=== PATIENT | female | born 1955 | race African-American/Black ===

== ENCOUNTER 2018-03-11 12:37 | Inpatient (IN) | payer OTHER ==
[~2018-03-11] VITALS: Ht 167.6 cm; Wt 88.6 kg
--- NOTE | ~2018-03-11 | CATHLAB ---
[facility] [address] [place] [address] INVASIVE PROCEDURE REPORT Name: KIRSTIN OBRIEN Room #: 206-P ADM IN M.R.#: [id number] Admission: 03/11/18 Attend Phys: Stephanie Echeverria Discharge: Date of : 55 Date of Service: 03/13/18 0837 Report #: [id number] THIS REPORT FOR: //name// APPROVED REPORT Study performed: 03/13/2018 07:39:41 Patient Details Patient Status: In-Patient Room #: The patient is a 62 year-old female Event Personnel Bebeto Flores Coke Oven Patcher, Funmilayo Orosco RTR, Deanna Guerrero Amber Monitor, Sandra, Bertha RN professor of social work Performed Art Access - R femoral artery* Left Heart Cath w/or w/o Coronaries [id number] [facility] [id number] Initial Mod Sed Same Phys/QHP Gr5y [id number] Hemostasis w/ Mynx Indication Chest pain Procedure Narrative The patient was brought urgently to the Cardiac Catheterization Laboratory and was prepped and draped in a sterile manner. The Right Groin^ was infiltrated with 1% Lidocaine subcutaneous anesthesia. A PINNACLE 6FR Sheath #[id number] sheath was inserted into the RFA^. Coronary angiography was performed using coronary diagnostic catheters. The right coronary system was accessed and visualized with a JR 4 catheter. The left coronary system was accessed and visualized with a JL 4 catheter. The left ventricle was accessed and visualized with a Pigtail catheter. Left ventricular/Aortic Valve gradient assessed via catheter pullback. Left ventriculogram was performed in DELGADO projection. Closure device was deployed with a 6 Fr Mynx. The patient tolerated the procedure well and there were no complications associated with the procedure. There was no hematoma. Intraoperative Conscious Sedation Sedation start time: 08:02 Case end Time: 08:20 Fentanyl 100 mcg Versed 2 mg Fluoro Time: 1.10 minutes Dose: DAP 2864.00 cGycm2 326 mGy [facility] [address] [address] INVASIVE PROCEDURE REPORT Name: KIRSTIN OBRIEN Room #: 206-P ADM IN M.R.#: [id number] Admission: 03/11/18 Attend Phys: Stephanie Echeverria Discharge: Date of : 55 Date of Service: 03/13/18 0837 Report #: [id number] Contrast Type and Amount: Omnipaque 115 ml Coronary Angiography The patient's coronary anatomy is co- dominant. Diagnostic Cath Left Main Normal LAD Normal LAD which extends to the inferoapex Diagonal 1 Single large and angiographically normal diagonal branch Circumflex Large, co-dominant circumflex L PDA Normal posterior descending off of the distal circumflex Right Coronary Normal right coronary R PDA Normal, small posterior descending Left Ventriculography The left ventricle is normal in size with normal contractility. The left ventricular ejection fraction is estimated to be 60-65%. Left ventricular wall motion abnormalities are not present. There is no mitral insufficiency. Hemodynamics The aortic pressure is 160/71 mmHg with a mean of 112 mmHg. The left ventricular pressure is 168/1 mmHg with a mean of mmHg. The left ventricular end diastolic pressure is 45 mmHg. Conclusion 1. Normal global and regional left ventricular systolic function. Ejection fraction 65% 2. Normal coronary vasculature. Codominant circulation <ELECTRONICALLY SIGNED> By: Bebeto Flores MD, FACC 03/13/1837 6 6 Bebeto Flores MD, FACC /INF
--- NOTE | ~2018-03-11 | EKG ---
[address] [address] ELECTROCARDIOGRAM REPORT Name: KIRSTIN ORBIEN Room #: 206-P ADM IN M.R.#: [id number] Admission: 03/11/18 Attend Phys: Stephanie Camacho Discharge: Date of : 55 Report #: [id number] THIS REPORT FOR: //name// [facility] ED Test Date: 2018-03-11 Test Time: 13:31:41 Pat Name: KIRSTIN OBRIEN Department: Room: 206 Gender: F Chain Carrier: JACOB : 1955 Requested By: Faustino Kincaid Order Number: [id number] MD: Regan Lacey Measurements Intervals [place] Rate: 100 P: 38 MD: 157 QRS: 22 QRSD: 77 T: 39 QT: 355 QTc: 458 Interpretive Statements Sinus tachycardia Abnormal R-wave progression, early transition No previous ECG available for comparison Electronically Signed On 03-11-2018 17:42:55 CDT by Regan Lacey [email or web address] <ELECTRONICALLY SIGNED> By: Regan Lacey MD 03/11/18 1742 1331 30 Regan Lacey MD /GERTRUDIS
--- NOTE | ~2018-03-11 | HC ---
[facility] [place] [address] CONSULTATION Name: KIRSTIN OBRIEN Room #: 206-P [facility] IN M.R.#: [id number] Admission: 03/11/18 Attend Phys: Stephanie Camacho Discharge: 03/14/18 Date of : 55 Report #: [id number] THIS REPORT FOR: //name// CC: MARY physician/PCP Stephanie Camacho DATE OF SERVICE: 03/12/2018 HISTORY OF PRESENT ILLNESS: This 62-year-old female is admitted with shortness of breath, chest pain and some left thigh pain. This extends from the hip down toward the knee. She denies any accidents or injuries. At the time of my discussion, she notes she has had chronic progressive hip and knee pain bilaterally for quite some time. She states she has been evaluated in the past, but does not recall whether she has had x-rays or any specific treatment. She feels she does have chronic degenerative arthritis, but is uncertain with regard to anything beyond this. Objectively, she is heavy and deconditioned. She notes she came in with chest pain and shortness of breath, which have improved somewhat. Now she is having difficulty with ambulation due to pain, principally at the left hip, groin and thigh, but also extending toward the left knee. She notes similar but less severe discomfort in the right hip and knee as well. Objectively, the left hip demonstrates satisfactory rotation and flexion, but with mild discomfort extending from the joint into the groin and mid thigh area. There is mild tenderness in the soft tissues about the mid thigh, but no redness or warmth. The left knee demonstrates a moderate knee effusion and some discomfort and crepitus with range of motion suggesting significant degenerative osteoarthritis. The opposite right lower extremity reveals moderate discomfort with movement of the right hip. There is no significant tenderness in the right thigh, no bruising or swelling. The right knee demonstrates a moderate knee effusion and some crepitus and pain with movement consistent with degenerative osteoarthritis. In summary, I think her symptoms are probably consistent with significant degenerative osteoarthritis of both hips and both knees. I am uncertain if she has other inflammatory arthritis diagnosis. The appearance certainly could be consistent with gout or some other inflammatory synovitis process. At this point, I do not have any x-rays to assess the degree of bony change, I would suggest going ahead with films of both hips and both knees. At this point, I see no reason to restrict her activities and would simply continue with pain management with oral anti-inflammatories or oral pain medication as necessary. We will talk again once the results of x-rays are available for review. Pending those findings, we might consider aspiration and injection in her knees, but probably would be more conservative with regard to her hip pain. As I am [address] [address] CONSULTATION Name: MICAHKIRSTIN Room #: 206-P DIS IN M.R.#: [id number] Admission: 03/11/18 Attend Phys: Stephanie Camacho Discharge: 03/14/18 Date of : 55 Report #: [id number] leaving town early tomorrow morning, I expect we will have followup from one of my partners during my absence. <ELECTRONICALLY SIGNED> By: David Mg MD 03/18/18 1413 1507 2225 David Mg MD /nt
[2018-03-11 12:40] VITALS: BP 160/95
[2018-03-11] MEDS ORDERED: DIOVAN160 MG PO (12:52)
[2018-03-11] MEDS ORDERED: NORVASC5 MG PO (12:53)
[2018-03-11] MEDS ORDERED: VENTOLIN HFA 1818 GM INH (12:53)
[2018-03-11] MEDS ORDERED: FLOVENT HFA 4444 MCG INH (12:53)
[2018-03-11] MEDS ORDERED: PRANDIN2 MG PO (12:54)
[2018-03-11] MEDS ORDERED: LANTUS SUBQ (12:55)
[2018-03-11] MEDS ORDERED: FLONASE 0.05%50 MCG NASAL (12:56)
[2018-03-11] MEDS ORDERED: SINGULAIR 10 MG10 M1 PO (12:56)
[2018-03-11] MEDS ORDERED: AZATHIOPRINE50 MG PO (12:56)
[2018-03-11] MEDS ORDERED: LEFLUNOMIDE 1010 MG PO (12:58)
[2018-03-11] MEDS ORDERED: CELEBREX 200 M200 M1 PO (13:09)
[2018-03-11] MEDS ORDERED: MOBIC15 MG PO (13:09)
[2018-03-11 14:08] LABS: BASOPHILS 0.7 % (0.0-2.0); EOSINOPHILS 0.6 % (0.0-3.0); HEMATOCRIT 38.8 % (37.0-47.0); HEMOGLOBIN 13.1 gm/dL (12.0-15.0); LYMPHOCYTES 29.9 % (24.0-44.0); MCHC 33.7 g/dL (28.0-37.0); MCV 106.9 fL (80.0-100.0); MONOCYTES 10.1 % (1.0-8.0); PLATELET COUNT 287 thou/uL (150-400); POLYS 58.7 % (36.0-66.0); RBC 3.63 mil/uL (4.20-5.00); RDW 18.5 % (10.5-14.5); WBC 5.2 thou/uL (4.0-11.0)
[2018-03-11 14:16] LABS: ANION GAP 10 mmol/L (7-16); BUN 15 mg/dL (7-18); CALCIUM 9.7 mg/dL (8.5-10.1); CHLORIDE 104 mmol/L (98-107); CO2 18 mmol/L (21-32); CREATININE 0.6 mg/dL (0.6-1.0); GLUCOSE 100 mg/dL (74-106); POTASSIUM 4.5 mmol/L (3.5-5.1); SODIUM 132 mmol/L (136-145)
[2018-03-11 14:25] LABS: ALBUMIN 3.6 g/dL (3.4-5.0); MAGNESIUM 1.8 mg/dL (1.8-2.4); SGOT 34 U/L (15-37); SGPT 9 U/L (30-65); TOTAL BILIRUBIN 0.6 mg/dL (<0.1-1.0); TOTAL PROTEIN 8.4 g/dL (6.4-8.2); TROPONIN-I <0.06 ng/mL (<0.06)
[2018-03-11 14:26] LABS: ANISOCYTOSIS 1+; MACROCYTES 2+; PLATELET ESTIMATE NORMAL
[2018-03-11 15:19] VITALS: BP 159/97
[2018-03-11 16:02] LABS: APTT 29.6 Seconds (24.5-32.8); D-DIMER 0.87 ug/mLFEU (0.19-0.50); INR 1.1; PROTIME 10.9 Seconds (9.3-11.4)
[2018-03-11] MEDS ORDERED: OXYCODONE HCL15 MG PO (16:11)
[2018-03-11 17:22] VITALS: BP 168/84
[2018-03-11] MEDS ORDERED: TRAZODONE 150150 M1 PO (18:02)
[2018-03-11 19:56] VITALS: BP 139/77
[2018-03-12 03:34] LABS: ANION GAP 8 mmol/L (7-16); BUN 15 mg/dL (7-18); CALCIUM 8.8 mg/dL (8.5-10.1); CHLORIDE 109 mmol/L (98-107); CO2 21 mmol/L (21-32); CREATININE 0.7 mg/dL (0.6-1.0); GLUCOSE 116 mg/dL (74-106); SODIUM 138 mmol/L (136-145)
[2018-03-12 03:35] LABS: POTASSIUM 3.4 mmol/L (3.5-5.1)
[2018-03-12 03:42] LABS: ALBUMIN 2.9 g/dL (3.4-5.0); PHOSPHORUS 3.6 mg/dL (2.5-4.9); TROPONIN-I <0.06 ng/mL (<0.06)
[2018-03-12 04:58] VITALS: BP 141/83
[2018-03-12 07:56] VITALS: BP 142/72
[2018-03-12 12:31] VITALS: BP 134/82
[2018-03-12 18:18] LABS: CHOLESTEROL 205 mg/dL (<200); HDL CHOLESTEROL 43 mg/dL (>40); LDL CHOLESTEROL 144 mg/dL (<100); TC:HDL 4.8 Ratio (Not establshd); TRIGLYCERIDE 91 mg/dL (<150); VLDL 18 mg/dL (<40)
[2018-03-12 19:59] VITALS: BP 135/78
[2018-03-12 21:25] VITALS: BP 125/78
[2018-03-13] VITALS (11 sets, daily range): BP systolic 112–137; BP diastolic 63–82
[2018-03-14 05:12] VITALS: BP 145/86
[2018-03-14 08:47] VITALS: BP 155/88
[2018-03-14] MEDS ORDERED: PREDNISONE 20 M20 MG PO (09:35)
[2018-03-14 14:02] VITALS: BP 155/88
[2018-03-14 14:26] VITALS: BP 155/88
[2018-03-17 10:07] LABS: ANA INTERPRETATION Negative (Negative)
== END 2018-03-14 19:06 | disposition home health service (06) | DRG 287 ==
LOC: ER 12:37 → 2N 14:48 → EROBS 14:48 → 2N 17:34 → ENTRNSPT 03-14 18:01 → 2N 03-14 19:06
PROVIDERS: Emergency Medicine; Hospitalist; Internal Medicine; Nurse Practitioner Gerontology
PROC: 3E0U3BZ Introduction of Anesthetic Agent into Joints, Percutaneous Approach (ICD-10-PCS; principal; 2018-03-13)
PROC: 4A023N7 Measurement of Cardiac Sampling and Pressure, Left Heart, Percutaneous Approach (ICD-10-PCS; principal; 2018-03-13)
PROC: BQ011ZZ Plain Radiography of Left Hip using Low Osmolar Contrast (ICD-10-PCS; principal; 2018-03-13)
PROC: 3E0U33Z Introduction of Anti-inflammatory into Joints, Percutaneous Approach (ICD-10-PCS; principal; 2018-03-13)
PROC: B2151ZZ Fluoroscopy of Left Heart using Low Osmolar Contrast (ICD-10-PCS; principal; 2018-03-13)
PROC: B2111ZZ Fluoroscopy of Multiple Coronary Arteries using Low Osmolar Contrast (ICD-10-PCS; principal; 2018-03-13)
DX: R07.9 Chest pain, unspecified (principal); G89.29 Other chronic pain; M13.152 Monoarthritis, not elsewhere classified, left hip; M79.606 Pain in leg, unspecified; J45.909 Unspecified asthma, uncomplicated; I10 Essential (primary) hypertension; E11.9 Type 2 diabetes mellitus without complications; R00.0 Tachycardia, unspecified; E78.5 Hyperlipidemia, unspecified; Z60.2 Problems related to living alone; E87.6 Hypokalemia; M17.0 Bilateral primary osteoarthritis of knee; Z79.82 Long term (current) use of aspirin; Z79.899 Other long term (current) drug therapy; Z88.2 Allergy status to sulfonamides; Z82.49 Family history of ischemic heart disease and other diseases of the circulatory system
CPT/HCPCS: 10081; 10797

== ENCOUNTER → 2018-03-17 | Outpatient (CLI) | payer OTHER ==
[~2018-03-17] VITALS: Ht 167.6 cm; Wt 87.3 kg
[~2018-03-17] MED LIST: AZATHIOPRINE50 MG PO; CELEBREX 200 M200 M1 PO; DIOVAN160 MG PO; FLONASE 0.05%50 MCG NASAL; FLOVENT HFA 4444 MCG INH; LANTUS SUBQ; LEFLUNOMIDE 1010 MG PO; MOBIC15 MG PO; NORVASC5 MG PO; OXYCODONE HCL15 MG PO; PRANDIN2 MG PO; PREDNISONE 20 M20 MG PO; SINGULAIR 10 MG10 M1 PO; TRAZODONE 150150 M1 PO; VENTOLIN HFA 1818 GM INH
[2018-03-17 13:29] VITALS: BP 134/85
== END ==
LOC: SEN 09:26
DX: I10 Essential (primary) hypertension (principal); E11.9 Type 2 diabetes mellitus without complications; E78.5 Hyperlipidemia, unspecified; J45.909 Unspecified asthma, uncomplicated; D53.9 Nutritional anemia, unspecified; M19.90 Unspecified osteoarthritis, unspecified site; G89.29 Other chronic pain; M25.562 Pain in left knee; Z79.4 Long term (current) use of insulin

== ENCOUNTER → 2018-04-01 | Outpatient (CLI) | payer OTHER ==
[~2018-04-01] MED LIST changes: +LEXAPRO 10 MG T10 M2 PO; +NAPROSYN500 MG PO
== END ==
LOC: SEN 08:14
DX: M54.5 Low back pain (principal); F32.9 Major depressive disorder, single episode, unspecified

== ENCOUNTER → 2018-08-06 | Outpatient (CLI) | payer OTHER ==
[~2018-08-06] VITALS: Ht 167.6 cm; Wt 92.2 kg
[~2018-08-06] MED LIST changes: +AMLODIPINE BESY10 MG PO; +ARAVA20 MG PO; +CELECOXIB100 MG PO; +CYMBALTA60 MG PO; +DURAGESIC1 EACH TRANSDERM; +IRON325 PO; +KEFLEX500 M1 PO; +LASIX 20 MG TAB20 MG PO; +LEXAPRO20 MG PO; +LIORESAL 10 MG10 MG PO; +LOPRESSOR50 PO; +MOBIC7.5 M1 PO; +MS CONTIN15 MG PO; +NEURONTIN 300300 M1 PO; +NEXIUM40 MG PO; +NORFLEX100 MG PO; +NYSTATIN100000 UNI SW&SWALLOW; +OXYCODONE HCL 55 MG PO; +OXYCONTIN10 M1 PO; +OXYCONTIN15 MG PO; +SENNA-DOCUSATE1 EACH PO; +SENNA8.6 MG PO; +TYLENOL ARTHRI650 MG PO; +VALSARTAN-HCTZ1 EAC2 PO; +XANAX 0.5 MG0.5 MG PO; +XARELTO15 MG PO; +XTAMPZA ER18 MG PO; +ZANAFLEX4 MG PO
--- NOTE | ~2018-08-06 | HPC ---
[facility] [address] [place] [address] PAIN MANAGEMENT CONSULTATION Name: KIRSTIN OBRIEN Room #: REG DOREEN Cordelia#: [id number] Admission: 08/06/18 ������������������ Attend Phys: Ca Reilly MD Discharge: ������������������ Date of : 55 Report #: [id number] THIS REPORT FOR: //name// CC: Zohaib Reilly DATE OF SERVICE: 08/06/2018 CHIEF COMPLAINT: Pain in the left leg, in the anterior thigh, and groin area. HISTORY: The patient is a 63-year-old female who has been seen in the pain clinic. As you may recall, she moved from [place] to [place] to help her parents. She has had pain in her back, which has radiated down into her left leg. She has been unable to walk secondary to pain in the left leg. An MRI showed a large extruded disk fragment centrally on the left side near the L3 vertebral body. The patient has been in a wheelchair. Finds that there is significant pain and discomfort in the L2-L3 dermatomal distribution. She is unable to perform activities of daily living because of this. The patient is unable to work. ALLERGIES: SULFA. CURRENT MEDICATIONS: Fentanyl patch has been used in the past 12 mcg, gabapentin 300 mg at bedtime, iron 325 mg b.i.d., senna t.i.d. for constipation, Tylenol Arthritis 650 mg, tizanidine 8 mg b.i.d., Lasix 20 mg, valsartan/hydrochlorothiazide 160/25, amlodipine 10 mg, Celebrex 100 mg b.i.d., Arava 20 mg, Nexium 40 mg, Norflex 100 mg, Lexapro 10 mg, azathioprine 50 mg b.i.d., and trazodone 150 mg at bedtime. PAIN CLINIC ASSESSMENT AND PQRS: 1. The patient has some arthritic changes in her low back area. She has changes in her left knee and has had a left knee replacement. She is not being treated for rheumatoid arthritis. 2. Height 5 feet 6 inches, weight 203 pounds, and BMI is 32.8. 3. Vital signs: Blood pressure 121/75, pulse 84, respiratory rate 20, room air saturation is 100%. 4. Pain intensity 12/10. 5. Fall risk. The patient has not fallen in the last 3 months, but has weakness in her left leg. 6. Blood thinner. The patient is not on a blood thinning medication. 7. Hypertension. The patient is being treated for hypertension. 8. Opioids greater than 6 weeks. The patient has been using opioid medications to help control her pain. 9. Risk assessment tool, low risk for opioid use. 10. Functional assessment tool 67/70. 11. Recreational drug use. The patient denies use of recreational drugs. [address] [address] PAIN MANAGEMENT CONSULTATION Name: KIRSTIN OBRIEN [id number] Admission: 08/06/18 ������������������ Attend Phys: Ca Reilly MD Discharge: ������������������ Date of : 55 Report #: [id number] 12. Tobacco: The patient has never smoked. 13. Alcohol. The patient rarely drinks alcoholic beverages. PHYSICAL EXAMINATION: GENERAL: The patient is a well-developed, well-nourished black female, appears her stated age. She is alert and oriented x 3. Affect is appropriate. Speech is fluent. HEENT: Normocephalic, atraumatic. Extraocular eye muscles intact. Sclerae nonicteric. The patient has a relative with her. She is in a wheelchair. NECK: Without adenopathy or JVD. HEART: Regular rate with normal tones. LUNGS: Clear to auscultation without rhonchi or rales. ABDOMEN: Protuberant. Bowel sounds present. MUSCULOSKELETAL: The patient without significant scoliosis, kyphosis, or lordosis. Has difficulty standing because of pain and discomfort in the left leg in the L2-L3 dermatomal distribution. Upper extremity muscle strength is judged to be 5-/5 pain and discomfort in the left leg makes muscle strength as a 4-/5 on the left. Has pain that is radiating down into her leg. IMPRESSION: Left lumbar radiculopathy in the L2-L3 dermatomal distribution with sensory changes of numbness, tingling, and weakness in the L2-L3 distribution. The patient has an MRI, which shows a large extruded disk fragment centrally at the L2-L3 area with an inferior extension along the L3 vertebral body. RECOMMENDATIONS: We discussed treatment options with the patient. At this juncture, we will have the patient return at which time an epidural steroid will be performed. We will petition the patient's insurance company. As soon as they give us the permission, we will proceed with an epidural steroid injection to help control the patient's discomfort. Hopefully, her pain will improve as ____ become more comfortable, active, and be able to return to work and help take care of her parents, which is the reason she has moved from [place] to [place]. We would like to thank you for letting us participate in her care. We hope she continues to improve. ��������������������������������������������� ���������������������������������������� By: ��������������������������������������������� 0016 0354 Ca Reilly MD /nt
[2018-08-06 11:18] VITALS: BP 121/75
--- NOTE | 2018-08-06 11:43 | NUR ---
Pain Clinic Assessment: 1. History of Osteoarthritis: KNEES BACK History of Rheumatoid Arthritis: NO 2. Height: 5 ft. 6 in. 167.6 cm. Weight: 203.2 lb. oz. 92.171 kg. Patient's BMI: 32.8 3. Vital Signs: BP: 121/75 Pulse: 84 Resp: 20 Temp: 02 Sat: 100 ECG Mon: 4. Pain Intensity: 7 5. Fall Risk: Dizziness: Y Needs help standing or walking: Y Fallen in the last 3 months: N Fall risk comments: 6. Patient on Blood Thinner: None 7. History of Hypertension: Y 8. Opioid Therapy greater than 6 weeks: Y Opiate Contract Signed: 9. Risk Assessment Tool Provided: 10. Functional Assessment Tool: 11. Recreational Drug Use: Unknown Drug Type: Tobacco Use: Never Smoker Tobacco Type: Amount or Packs/day: How Many Years: Alcohol Use: Yes Frequency: Quant:
== END ==
LOC: PAIN
DX: M54.16 Radiculopathy, lumbar region (principal); Z88.2 Allergy status to sulfonamides; Z79.891 Long term (current) use of opiate analgesic; Z79.899 Other long term (current) drug therapy

== ENCOUNTER → 2018-11-07 | Outpatient (CLI) | payer OTHER | LOC: ULTRA 09:21 | DX: N28.1 Cyst of kidney, acquired (principal); R10.11 Right upper quadrant pain ==

== ENCOUNTER → 2018-11-18 | Outpatient (CLI) | payer OTHER | LOC: SPEC 13:00 | DX: Z09 Encounter for follow-up examination after completed treatment for conditions other than malignant neoplasm (principal); M19.90 Unspecified osteoarthritis, unspecified site; D53.9 Nutritional anemia, unspecified; M54.9 Dorsalgia, unspecified; G89.29 Other chronic pain; E78.5 Hyperlipidemia, unspecified; E11.9 Type 2 diabetes mellitus without complications; F32.9 Major depressive disorder, single episode, unspecified; Z79.4 Long term (current) use of insulin; Z86.718 Personal history of other venous thrombosis and embolism; Z96.652 Presence of left artificial knee joint; Z79.01 Long term (current) use of anticoagulants; Z87.440 Personal history of urinary (tract) infections; Z88.2 Allergy status to sulfonamides ==

== ENCOUNTER 2019-02-05 16:57 | Emergency (ER) | payer OTHER ==
[~2019-02-05] VITALS: Ht 162.6 cm; Wt 86.2 kg
[~2019-02-05 16:57] MED LIST changes: +NORCO 5-325 TA1 EAC1 PO
[2019-02-05 17:48] LABS: ABSOLUTE NEUTROPHILS 3.2 thou/uL (1.4-8.2); BASOPHILS 1.2 % (0.0-2.0); EOSINOPHILS 0.9 % (0.0-3.0); HEMATOCRIT 35.8 % (37.0-47.0); HEMOGLOBIN 11.7 gm/dL (12.0-15.0); MCHC 32.7 g/dL (28.0-37.0); MCV 101.2 fL (80.0-100.0); MONOCYTES 10.3 % (1.0-8.0); PLATELET COUNT 235 thou/uL (150-400); POLYS 53.6 % (36.0-66.0); RBC 3.54 mil/uL (4.20-5.00); RDW 13.6 % (10.5-14.5); WBC 5.9 thou/uL (4.0-11.0)
[2019-02-05 18:05] LABS: ANION GAP 5 mmol/L (7-16); BUN 12 mg/dL (7-18); CALCIUM 8.9 mg/dL (8.5-10.1); CHLORIDE 103 mmol/L (98-107); CO2 30 mmol/L (21-32); CREATININE 0.8 mg/dL (0.6-1.0); GLUCOSE 119 mg/dL (74-106); POTASSIUM 3.2 mmol/L (3.5-5.1); SODIUM 138 mmol/L (136-145)
[2019-02-05 18:15] LABS: ALBUMIN 3.3 g/dL (3.4-5.0); SGOT 14 U/L (15-37); SGPT 11 U/L (30-65); TOTAL BILIRUBIN 0.3 mg/dL (<0.1-1.0); TOTAL PROTEIN 7.3 g/dL (6.4-8.2); TROPONIN-I <0.06 ng/mL (<0.06)
[2019-02-05 18:16] VITALS: BP 138/63
[2019-02-05] MEDS ORDERED: NORFLEX100 MG PO (18:44)
[2019-02-05] MEDS ORDERED: NAPROSYN500 MG PO (18:44)
--- NOTE | 2019-02-06 14:44 | EKG ---
[place] [address] [address] [place] [address] ELECTROCARDIOGRAM REPORT Name: MICAHKIRSTIN [id number] Admission: 02/05/19 Attend Phys: Discharge: 02/05/19 Date of : 55 Report #: [id number] THIS REPORT FOR: //name// [facility] ED Test Date: 2019-02-05 Test Time: 17:00:35 Pat Name: KIRSTIN OBRIEN Department: Room: Gender: F Imaging Services Director: : 1955 Requested By: Raul Hernandez Order Number: [id number] MD: Francois Dotson Measurements Intervals [place] Rate: 99 P: 49 WV: 149 QRS: 35 QRSD: 95 T: 32 QT: 365 QTc: 469 Interpretive Statements Sinus rhythm Abnormal R-wave progression, early transition Compared to ECG 04/09/2018 15:02:56 Sinus tachycardia no longer present Electronically Signed On 02-06-2019 14:43:59 CDT by Francois Dotson [email or web address] <ELECTRONICALLY SIGNED> By: Francois Dotson MD 02/06/19 1443 1700 1700 Francois Dotson MD /GERTRUDIS
== END 2019-02-05 19:31 | disposition home or self-care (01) ==
LOC: ER 16:57
PROVIDERS: Emergency Medicine
DX: M17.11 Unilateral primary osteoarthritis, right knee (principal); R07.89 Other chest pain; E11.9 Type 2 diabetes mellitus without complications; E78.00 Pure hypercholesterolemia, unspecified; I10 Essential (primary) hypertension; Z88.2 Allergy status to sulfonamides; Z96.652 Presence of left artificial knee joint

== ENCOUNTER → 2020-02-18 | Outpatient (CLI) | payer OTHER | LOC: LAB 12:07 | PROVIDERS: ATTEND Internal Medicine Gastroenterology | DX: Z01.812 Encounter for preprocedural laboratory examination (principal); Z20.828 Contact with and (suspected) exposure to other viral communicable diseases ==